=== PATIENT | female | born 1995 | race American Indian/Alaskan Native ===

== ENCOUNTER 2016-10-12 22:45 | Emergency (ER) | payer SELFPAY ==
[2016-10-13 00:04] LABS: Basophils % (Auto) 1.1 % (0.0-1.8); Eosinophils % (Auto) 0.9 % (0.0-4.3); Hematocrit 32.1 % (30.3-42.9); Hemoglobin 10.1 gm/dl (10.1-14.3); Mean Corpuscular HGB Conc 31 % (30-34); Mean Corpuscular Volume 77 fl (79-97); Platelet Count 166 K/mm3 (140-440); Red Blood Count 4.16 M/mm3 (3.65-5.03); White Blood Count 3.7 K/mm3 (4.5-11.0)
[2016-10-13 00:10] LABS: Mean Corpuscular Hemoglobin 24 pg (28-32)
[2016-10-13 00:22] LABS: Alanine Aminotransferase 7 units/L (7-56); Albumin 4.4 g/dL (3.9-5); Albumin/Globulin Ratio 1.4 %; Alkaline Phosphatase 33 units/L (35-129); Blood Urea Nitrogen 13 mg/dL (7-17); Calcium 9.9 mg/dL (8.4-10.2); Carbon Dioxide 26 mmol/L (22-30); Chloride 102.4 mmol/L (98-107); Glucose 97 mg/dL (65-100); Potassium 3.9 mmol/L (3.6-5.0); Sodium 141 mmol/L (137-145); Total Protein 7.5 g/dL (6.3-8.2)
[2016-10-13 00:24] LABS: Anion Gap 17 mmol/L
[2016-10-13 01:51] LABS: Bilirubin,Urine NEG (Negative); Blood,Urine SM (Negative); Ketones,Urine NEG (Negative); Leukocyte Esterase,Urine NEG (Negative); Mucus,Urine 2+ /HPF; Nitrite,Urine NEG (Negative); Urobilinogen,Urine < 2.0 mg/dL (<2.0)
[2016-10-13 06:03] VITALS: BP 108/75
--- NOTE | 2016-10-13 06:49 | Emergency Department Report ---
- General Chief complaint: Weakness Stated complaint: ANEMIA DEFICIENCY Time Seen by Provider: 10/13/16 06:41 Source: patient Mode of arrival: Ambulatory Limitations: No Limitations - History of Present Illness Initial comments: 21-year-old female feeling weak and fatigued tired because last several days. She denies fevers chills nausea vomiting. She is a known history of anemia and states that she feels like this is similar to when she's needed blood transfusions in the past. Her last transfusion was approximately one year ago. She takes iron supplementation but not regularly. MD Complaint: generalized weakness -: Gradual Location: generalized Improves with: none Worsens with: none Associated Symptoms: headaches, loss of appetite. denies: chest pain, confusion , dark stools, diaphoresis, dysuria, easy bruising, fever/chills, nausea/ vomiting, myalgias, rash, shortness of breath, syncope - Related Data Previous Rx's Medication Instructions Recorded Last Taken Type Acetaminophen/Codeine [Tylenol #3] 1 tab PO Q6H PRN #10 tab 03/20/13 Unknown Rx Ferrous Sulfate [Feosol 325 MG tab] 325 mg PO QDAY #30 tablet 03/20/13 Unknown Rx Polyethylene Glycol 3350 [Miralax] 1 tbsp PO DAILY #1 bottle 03/20/13 Unknown Rx Nitrofurantoin Jewell/M-Cryst 100 mg PO Q12HR #14 capsule 06/06/13 Unknown Rx [Macrobid] Ondansetron [Zofran] 4 mg PO Q6HR PRN #16 tablet 06/06/13 Unknown Rx Ibuprofen [Motrin] 800 mg PO Q8HR PRN #30 tablet 11/30/15 Unknown Rx Allergies Allergy/AdvReac Type Severity Reaction Status Date / Time No Known Allergies Allergy Unverified 03/20/13 00:09 ED Review of Systems ROS: Stated complaint: ANEMIA DEFICIENCY Other details as noted in HPI Comment: All other systems reviewed and negative Constitutional: malaise, weakness. denies: chills, fever Eyes: denies: eye pain, eye discharge, vision change ENT: denies: ear pain, throat pain Respiratory: denies: cough, shortness of breath, wheezing Cardiovascular: denies: chest pain, palpitations Endocrine: no symptoms reported Gastrointestinal: denies: abdominal pain, nausea, diarrhea Genitourinary: denies: urgency, dysuria, discharge Musculoskeletal: denies: back pain, joint swelling, arthralgia Skin: denies: rash, lesions Neurological: headache, weakness. denies: numbness, paresthesias, confusion Psychiatric: denies: anxiety, depression Hematological/Lymphatic: denies: easy bleeding, easy bruising ED Past Medical Hx - Past Medical History Previous Medical History?: Yes Additional medical history: anemia - Surgical History Past Surgical History?: No - Family History Family history: no significant - Social History Smoking Status: Never Smoker Substance Use Type: None - Medications Home Medications: Home Medications Medication Instructions Recorded Confirmed Last Taken Type Acetaminophen/Codeine [Tylenol #3] 1 tab PO Q6H PRN #10 tab 03/20/13 06/06/13 Unknown Rx Ferrous Sulfate [Feosol 325 MG tab] 325 mg PO QDAY #30 tablet 03/20/13 06/06/13 Unknown Rx Polyethylene Glycol 3350 [Miralax] 1 tbsp PO DAILY #1 bottle 03/20/13 06/06/13 Unknown Rx Nitrofurantoin Jewell/M-Cryst 100 mg PO Q12HR #14 capsule 06/06/13 Unknown Rx [Macrobid] Ondansetron [Zofran] 4 mg PO Q6HR PRN #16 tablet 06/06/13 Unknown Rx Ibuprofen [Motrin] 800 mg PO Q8HR PRN #30 tablet 11/30/15 Unknown Rx ED Physical Exam - General Limitations: No Limitations General appearance: alert, in no apparent distress - Head Head exam: Present: atraumatic, normocephalic - Eye Eye exam: Present: normal appearance. Absent: scleral icterus, conjunctival injection - ENT ENT exam: Present: mucous membranes moist - Neck Neck exam: Present: normal inspection - Respiratory Respiratory exam: Present: normal lung sounds bilaterally. Absent: respiratory distress - Cardiovascular Cardiovascular Exam: Present: regular rate, normal rhythm. Absent: systolic murmur, diastolic murmur, rubs, gallop - GI/Abdominal GI/Abdominal exam: Present: soft, normal bowel sounds - Extremities Exam Extremities exam: Present: normal inspection - Back Exam Back exam: Present: normal inspection - Neurological Exam Neurological exam: Present: alert, oriented X3 - Psychiatric Psychiatric exam: Present: normal affect, normal mood - Skin Skin exam: Present: warm, dry, intact, normal color. Absent: rash ED Course Vital Signs 10/12/16 10/13/16 23:06 06:00 Temperature 98.4 F Pulse Rate 80 75 Respiratory 18 Rate Blood Pressure 118/89 Blood Pressure 108/75 [Left] O2 Sat by Pulse 100 100 Oximetry ED Medical Decision Making - Lab Data Result diagrams: 10/12/16 23:41 10/12/16 23:41 Laboratory Results - last 24 hr 10/12/16 10/12/16 10/12/16 23:41 23:41 23:41 WBC 3.7 L RBC 4.16 Hgb 10.1 Hct 32.1 MCV 77 L MCH 24 L MCHC 31 RDW 22.0 H Plt Count 166 Lymph % (Auto) 48.1 H Jewell % (Auto) 10.0 H Eos % (Auto) 0.9 Baso % (Auto) 1.1 Lymph # 1.8 Jewell # 0.4 Eos # 0.0 Baso # 0.0 Seg Neutrophils % 39.9 L Seg Neutrophils # 1.5 L Sodium 141 Potassium 3.9 Chloride 102.4 Carbon Dioxide 26 Anion Gap 17 BUN 13 Creatinine 1.0 Estimated GFR > 60 BUN/Creatinine Ratio 13.00 Glucose 97 Calcium 9.9 Total Bilirubin 0.20 AST 16 ALT 7 Alkaline Phosphatase 33 L Total Protein 7.5 Albumin 4.4 Albumin/Globulin Ratio 1.4 HCG, Quant < 2 Urine Color Urine Turbidity Urine pH Ur Specific [place] Urine Protein Urine Glucose (UA) Urine Ketones Urine Blood Urine Nitrite Urine Bilirubin Urine Urobilinogen Ur Leukocyte Esterase Urine WBC (Auto) Urine RBC (Auto) U Epithel Cells (Auto) Amorphous Crystals Urine Mucus Blood Type Antibody Screen 10/12/16 10/13/16 23:47 01:03 WBC RBC Hgb Hct MCV MCH MCHC RDW Plt Count Lymph % (Auto) Jewell % (Auto) Eos % (Auto) Baso % (Auto) Lymph # Jewell # Eos # Baso # Seg Neutrophils % Seg Neutrophils # Sodium Potassium Chloride Carbon Dioxide Anion Gap BUN Creatinine Estimated GFR BUN/Creatinine Ratio Glucose Calcium Total Bilirubin AST ALT Alkaline Phosphatase Total Protein Albumin Albumin/Globulin Ratio HCG, Quant Urine Color Yellow Urine Turbidity Clear Urine pH 7.0 Ur Specific [place] 1.025 Urine Protein 30 mg/dl Urine Glucose (UA) Neg Urine Ketones Neg Urine Blood Sm Urine Nitrite Neg Urine Bilirubin Neg Urine Urobilinogen < 2.0 Ur Leukocyte Esterase Neg Urine WBC (Auto) 2.0 Urine RBC (Auto) 3.0 U Epithel Cells (Auto) 3.0 Amorphous Crystals 1+ Urine Mucus 2+ Blood Type A POSITIVE Antibody Screen Negative - Medical Decision Making 21-year-old female here with complaints of fatigue and weakness. Patient has a normal H&H of 10 and 32. Physical exam is unremarkable. Patient has no other findings on laboratory exam concerning for causes of weakness. Likely viral syndrome. Critical care attestation.: If time is entered above; I have spent that time in minutes in the direct care of this critically ill patient, excluding procedure time. ED Disposition Clinical Impression: Weakness, Viral syndrome Disposition: [id number] TO HOME OR SELFCARE Is pt being admited?: No Condition: Stable Instructions: Weakness (ED) Additional Instructions: Continue to take your iron on a daily basis Referrals: PRIMARY CARE, [Primary Care Provider] - 3-5 Days
== END 2016-10-13 07:05 | disposition home or self-care (01) ==
LOC: ED 22:45
DX: B34.9 Viral infection, unspecified (principal); R53.1 Weakness
CPT/HCPCS: 36415; 80053; 81001; 84702; 85025; 86850; 86900; 86901; 99283